=== PATIENT | female | born 2000 | race Caucasian/White ===

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

== ENCOUNTER 2023-09-26 13:49 | Emergency (ER) | payer MEDICAID, SELFPAY ==
[2023-09-26 13:53] VITALS: BP 116/66; PULSE 118; RESP 14; TEMP 36.5; O2SAT 99
--- NOTE | 2023-09-26 14:09 | W.ED.GENAD ---
HPI General Mode of arrival: ambulatory. Date/Time Provider Initiated Documentation: 09/26/23 13:59. Limitations to Documentation: no limitations. Information obtained by: patient. History of Present Illness 23 year old F presents to the emergency department with the chief complaint of Migraine, described as moderate, Quality is described as aching, and is localized to the head. Patient reports no radiation. Patient started experiencing this hour(s) (7) and it has been constant. No relieving factors improve symptom(s), No exacerbating factors reported . Patient notes nausea/vomiting; denies chest pain, fever/chills and shortness of breath. Related Data Home Medications Medication Instructions Recorded Confirmed ibuprofen 200 mg capsule 200 mg PO PRN ##3 03/13/16 cranberry 400 mg capsule 400 mg PO DAILY 08/11/18 08/11/18 levonorgestrel 0.15 mg-ethinyl 1 tab PO DAILY #91 dose pk 08/11/18 08/11/18 estradiol 30 mcg tablets,3 mos pack(91) (Jolessa) multivitamin 1 cap PO DAILY 08/11/18 08/11/18 Previous Rx's Medication Instructions Recorded levonorgestrel 0.15 mg-ethinyl 1 tab PO DAILY #91 dose pk 08/11/18 estradiol 30 mcg tablets,3 mos pack(91) (Jolessa) Allergies Allergy/AdvReac Type Severity Reaction Status Date / Time No Known Allergies Allergy Unverified 08/11/18 15:11 General Stated Complaint: Headache GINGER: 3 Review of Systems All systems reviewed & are unremarkable except as noted in HPI and below Constitutional Constitutional: Denies chills, Denies fever(s) and Denies weakness Eyes Eyes: Denies loss of vision Cardiovascular Cardiovascular: Denies chest pain and Denies dyspnea Respiratory Respiratory: Denies cough and Denies dyspnea Gastrointestinal Gastrointestinal: Denies abdominal pain and Reports vomiting Genitourinary Genitourinary: Denies dysuria Musculoskeletal Musculoskeletal: Denies joint swelling Integumentary/Breasts Skin/Breast: Denies rash Neurologic Neurologic: Denies loss of vision and Denies weakness Endocrine Endocrine: Denies cold intolerance Exam Const Orientation: alert HENME Head: normal to inspection Ears: external ears normal General nose exam: external nose normal Mouth: moist mucous membranes Eyes General: appearance normal, both eyes and all related structures Alignment and Position: alignment normal Conjunctivae: conjunctivae normal Pupils: PERRL EOM: EOM intact bilaterally Neck Neck: normal visual inspection Resp Effort & Inspection: normal respiratory effort and able to speak in complete sentences Cardio Rate: regular rate Skin General skin exam: no rashes or lesions noted Neuro General: patient alert and patient oriented x3 Extrem General: normal to inspection Psych Mental Status: mental status grossly normal Course Vital Signs Vital signs: Vital Signs Temperature 36.5 C 09/26/23 13:53 Pulse 118 H 09/26/23 13:53 Respiratory Rate 14 09/26/23 13:53 Blood Pressure 116/66 09/26/23 13:53 Pulse Oximetry 99 09/26/23 13:53 Temperature 36.5 C 09/26/23 13:53 Temperature Source Skin 09/26/23 13:53 Pulse 118 H 09/26/23 13:53 Respiratory Rate 14 09/26/23 13:53 Blood Pressure 116/66 09/26/23 13:53 Pulse Oximetry 99 09/26/23 13:53 Oxygen Delivery Method Room Air 09/26/23 13:53 Oxygen Flow Rate 0 09/26/23 13:53 Pain Level 8 09/26/23 13:53 Medical Decision Making 23-year-old female who states she has a history of migraines, used to be on as needed medication for but has not in some years due to not having a primary care provider, comes in with pain in her head similar to prior migraines started around 7 AM this morning and slowly worsening throughout the day. Denies any falls, trauma, fevers, chills, she has had some nausea and vomiting. She localizes the pain to the left frontal head where she normally gets her migraines. She is conscious alert and oriented x 4 on arrival speaking clearly, she does have photophobia. No focal deficits cranial nerves II through XII intact, no meningismus, full range of motion of the neck. Given her history suspect migraine will treat her symptoms check basic labs and reassess. Pain is slowly been worsening throughout the day and feels similar to prior migraine so doubt subarachnoid hemorrhage, and has no fevers and no meningismus so doubt [employer] infection Labs unremarkable, patient states pain resolved and feels well. Still reassuring exam. Given her history and rapid resolution with migraine therapies feel this is consistent with migraine and do not feel any imaging or further testing is indicated. Advised to follow-up with a primary care at some point if these continue. Return precautions given Differential Diagnosis Differential Diagnosis: Migraine, tension headache, cluster headache Lab Data Lab results reviewed: Yes I reviewed the patient's lab results. Quality:[facility] Health Related Social Needs: No Data to Display [facility] All Active Problems (Updated 09/26/23 @ 14:33 by Luis Angel Smith MD) Migraine (Chronic) Breakthrough bleeding on Nexplanon (Acute 03/13/16) 2 symptomatic ovarian cysts, one requiring diag l/s w/ cystotomy at [facility]; no endometrioisis seen Medical History (Updated 09/26/23 @ 14:33 by Luis Angel Smith MD) Fibromyalgia Mild asthma Allergic rhinitis Mononucleosis Insomnia Anxiety Depression PTSD (post-traumatic stress disorder) Oppositional defiant disorder ADHD Surgical History (Updated 08/12/18 @ 08:21 by Naz Smtih NP) H/O laparoscopy L ovarian cystotomy, neg endometriosis w/u. 01/29/2016 S/P wrist surgery R, 09/2015 Family History (Updated 08/12/18 @ 08:22 by Naz Smith NP) Father ADHD Chronic mental illness Maternal Grandfather Colon cancer Social History (Updated 08/11/18 @ 15:09 by Lolis Preciado LPN) Smoking/Tobacco Use Status: Never Smoking risk assessment performed?: Yes Substance use type: marijuana Housing: house Do you feel safe at home: Yes Do you feel safe in your relationship?: Yes Female Reproductive History Menstrual control method: progesterone injection History History 0 Para Hx # Term Pregnancies Multiple births Hx # Pregnancies Ectopic pregnancies AB induced Hx Number of Living Children AB spontaneous Discharge Plan Disposition Patient Disposition: Home Condition: Stable Discharge Details Clinical Impression: Migraine Primary Care Provider: Jamilah Russell ED Provider: Luis Angel Smith Home Meds and New Rx's Prescriptions: Continued cranberry 400 mg capsule 400 mg PO DAILY multivitamin capsule 1 cap PO DAILY levonorgestrel-ethinyl estrad [Jolessa] 0.15 mg-30 mcg tablets,dose pack,3 month 1 tab PO DAILY Qty: 91 4RF ibuprofen 200 MG capsule 200 mg PO PRN Qty: 3 Discharge Instructions Instructions: Migraine Headache (ED) Additional Instructions: Try and get established with a primary care who can manage her migraines in the future and possibly prescribe preventative medications If you feel more ill, have severe worsening pain not controlled with oral medication or new symptoms such as high fevers return to the emergency department
[2023-09-26 14:20] LABS: Abs Immature Grans 0.03 10^3/uL (0.0-0.06); Absolute Basophil Count 0.04 10^3/uL (0.0-0.2); Absolute Eosinophil Count 0.13 10^3/uL (0.0-0.7); Absolute Lymphocyte Count 2.12 10^3/uL (1.2-3.4); Absolute Monocyte Count 0.28 10^3/uL (0.1-0.8); Absolute Neutrophil Count 5.76 10^3/uL (1.2-6.7); Basophils % 0.5; Eosinophils % 1.6; HCT 38.6 % (36.0-46.0); HGB 13.4 g/dL (11.2-15.7); Immature Grans % 0.4; Lymphocytes % 25.4; MCH 29.8 pg (27.0-33.0); MCHC 34.7 % (32.0-36.0); MCV 86 fL (80-95); MPV 10.7 fL (8.0-11.0); Monocytes % 3.3; Neutrophils % 68.8; Platelet Count 144 10^3/uL (130-400); RDW 12.1 % (11.7-14.6); RDW-SD 38.2 fL; WBC 8.36 10^3/uL (4.4-10.8)
[2023-09-26] MEDS: Prochlorperazine 10 MG/2 ML VIAL IVP (14:26)
[2023-09-26] MEDS: Ketorolac 15 MG/ML VIAL IVP (14:27)
[2023-09-26] MEDS: diphenhydrAMINE 50 MG/ML VIAL 25 MG IVP (14:27)
[2023-09-26] MEDS: Dexamethasone 10 MG/ML VIAL IVP (14:27)
[2023-09-26] MEDS: Normal Saline 1,000 ML 1000 ML IV (14:28)
[2023-09-26 14:40] LABS: HCG Qual (Serum) Negative
[2023-09-26 15:10] LABS: ALT 21 U/L (14-59); AST 13 U/L (15-37); Albumin 4.4 g/dL (3.4-5.0); Alkaline Phosphatase 95 U/L (46-116); Anion Gap 12.9 mmol/L (3-11); BUN 15 mg/dL (7-18); Bilirubin, Total 0.5 mg/dL (0.2-1.0); CO2 24.1 mmol/L (21.0-32.0); CREATININE 0.8 mg/dL (0.55-1.02); Calcium 9.5 mg/dL (8.5-10.1); Chloride 102 mmol/L (98-107); Estimated GFR 106.11 (mL/min/1.73m2); Glucose 128 mg/dL (74-106); Magnesium 1.9 mg/dL (1.8-2.4); Potassium 3.5 mmol/L (3.5-5.1); Sodium 139 mmol/L (136-145); Total Protein 7.7 g/dL (6.4-8.2)
[2023-09-26 15:29] VITALS: BP 110/71; PULSE 87; RESP 18; TEMP 36.9; O2SAT 98
== END 2023-09-26 15:29 | disposition home or self-care (01) ==
PROVIDERS: Emergency Provider Emergency Medicine; PCP Family Medicine
DX: G43.909 Migraine, unspecified, not intractable, without status migrainosus (principal)
CPT/HCPCS: 80053; 96361; 96374; 96375; 99284; 83735; 84703; 85025; J0780; J1100; J1200; J1885